=== PATIENT | female | born 1990 | race Caucasian/White ===

== ENCOUNTER 2023-08-28 10:04 | Inpatient (IN) | payer OTHER ==
[2023-08-28] VITALS (34 sets, daily range): BP systolic 109–149; BP diastolic 59–91; PULSE 83–115; TEMP 97.8–98.9
[~2023-08-28] VITALS: Ht 160 cm; Wt 100.9 kg
[~2023-08-28 10:04] MED LIST: ORSYTHIA 0.02 M1 TAB PO; PRENATAL TABLET PO; ZOFRAN ODT4 MG PO
--- NOTE | 2023-08-28 14:25 | NUR ---
PT ARRIVES AMBULATORY FOR IOL. SUPPORTIVE AND AT BEDSIDE. PT ORIENTED TO ROOM AND PLAN OF CARE. PT DENIES LOF/VB, REPORTS "MILD" CONTRACTIONS EARLIER TODAY, AND REPORTS A "VERY ACTIVE" BABY. URE AWARE OF PT'S ARRIVAL. CATEGORY 1 EFM TRACING UPON ADMISSION, SVE 1-270/-2, INTACT.
[2023-08-28] MEDS ORDERED: LR 1,000 ML IV SCH (14:30)
[2023-08-28] MEDS ORDERED: LR & Oxytocin 500 ML IV SCH (14:30)
[2023-08-28 14:52] LABS: BASO % 0.3 % (0.0-2.0); EOS # 0.1 K/mm3 (0.0-0.7); EOS % 0.9 % (0.0-4.0); GRAN # 8.3 K/mm3 (1.4-6.5); GRAN % 71.5 % (42.2-75.2); LYMPH # 2.1 K/mm3 (1.2-3.4); LYMPH % 17.9 % (20.0-51.0); MEAN CELL VOLUME 90 fl (80.0-100.0); MEAN CORPUSCULAR HEMOGLOBIN 31 pg (27-31); MEAN CORPUSCULAR HGB CONC 34 g/dl (33.0-37.0); MONO % 8.2 % (1.7-9.3); PLATELET COUNT 267 K/mm3 (130-400); REDCELL DISTRIBUTION WIDTH-CV 13.2 % (11.5-14.5)
[2023-08-28 14:56] LABS: HEMATOCRIT 32.5 % (37.0-47.0)
--- NOTE | 2023-08-28 17:09 | NUR ---
DR RAMIREZ AT BEDSIDE. BEDSIDE ULTRASOUND PERFORMED, VERTEX PRESENTATION CONFIRMED. SVE /-2, AROM WITH LARGE AMOUNT OF CLEAR FLUID PER AT 1709. PT TOLERATED PROCEDURE WELL. FSE PLACED FOR MONITORING AT THIS TIME.
--- NOTE | 2023-08-28 18:28 | NUR ---
Pt sitting at edge of bed for epidural placement. 183 H.Afshin NOZZLE AND SLEEVE WORKER into room for epidural placement. See Anesthesia record. 1836 Single shot. 183 Test dose. 185 To Wedge left. 185 To WR after pt reprts pain is in R hip.
[2023-08-28] MEDS ORDERED: ROPivacaine PF 0.2% 200 ML IV ONE (18:30)
[2023-08-28] MEDS ORDERED: ePHEDrine 50 MG/10 ML VIAL IV PRN (18:45)
[2023-08-28] MEDS ORDERED: diphenhydrAMINE 50 MG/ML 1 ML VIAL IV PRN (18:45)
[2023-08-28] MEDS ORDERED: diphenhydrAMINE 25 MG CAP PO PRN (18:45)
[2023-08-28] MEDS ORDERED: Naloxone 0.4 MG/ML VIAL IV PRN (18:45)
[2023-08-28] MEDS ORDERED: Ondansetron 4 MG/2 ML VIAL IV PRN (18:45)
--- NOTE | 2023-08-28 19:10 | NUR ---
To WL , encouraged to push epidural MENTAL HEALTH PROGRAM DIRECTOR. PT breathing through ctx, tense.
--- NOTE | 2023-08-28 19:40 | NUR ---
Working on getting pt more comfortable, position changes, pt using epidural QUALITY ENGINEERING MANAGER button. FHT's to 80's with position chamge to supine for SVE. gradual return to baseline over q 1 min.
--- NOTE | 2023-08-28 19:50 | NUR ---
Hot pack applied to L hip for pt comfort
--- NOTE | 2023-08-28 20:15 | NUR ---
KERI RL. Pt states "I'm starting to ge more comfortable"
--- NOTE | 2023-08-28 21:00 | NUR ---
Dr Monte continues on unit at L&D desk.
--- NOTE | 2023-08-28 21:47 | NUR ---
To PB RL. FHT'S TO 90's with position change. Back to baseline when PB removed. onset to return to baseline [address] Monte into room, FHT'swith late decel to 90's with next ctx. To Supine for SVE by Dr Monte, as noted.AR
--- NOTE | 2023-08-28 22:15 | NUR ---
FHT's with late decelerations to 120's after peak of ctx,spont return to baseline. onset to return to baseline 60-70 sec. 2220 to LL with larger pb in place. FHT's to 80's-90's with position change, moderate to marked variability in trough. returns above baseline, 150's. Thne late decelration to 130's with next ctx. 2225 Pitocin gtt off. [address] Monte. To R lateral with stirrup. Dr Monte continue in room. 0 FHT's to 90's after ctx and position change. Gradual spont return to baselin 130's over 1.5 minutes. FHT's with late deceleratin with next ctx. O2 @10l/mask by Dr Monte 2237 To Kneechest with max assist of 3
--- NOTE | 2023-08-28 22:45 | NUR ---
Dr Monte continues in room with this RN. O2 off per Dr Monte. Pt to WR.
--- NOTE | 2023-08-28 23:10 | NUR ---
Pitocin gtt restarted @ 2mu/min. 2315 Pitocin gtt to 10mu/min per Dr Monte's order.
--- NOTE | 2023-08-28 23:30 | NUR ---
FHT's with recurrent late decelerations. This RN and Dr Monte into room. WL, FHT's to [address] SVE by DR Monte, unchanged. Piotocin gtt off . To WR. FHt's with gradual return to baseline. onset to return to baseline 4min. Dr Monte discusses POC for C/S. Questions invited and answerred. Anesthesia into room to dose epidural. 4078 To C/S room via bed.
[2023-08-28] MEDS ORDERED: Chloroprocaine PF 3% (30 MG/ML) 20 ML VIAL ONE (23:35)
[2023-08-28] MEDS ORDERED: NS 10 ML IV ONE (23:44)
[2023-08-29] VITALS (16 sets, daily range): BP systolic 104–130; BP diastolic 42–75; PULSE 70–90; TEMP 98–98.7
[2023-08-29] MEDS ORDERED: Ketorolac 30 MG/ML VIAL ONE (00:02)
[2023-08-29] MEDS ORDERED: Ondansetron 4 MG/2 ML VIAL ONE (00:10)
[2023-08-29] MEDS ORDERED: dexAMETHasone 10 MG/ML VIAL ONE (00:14)
[2023-08-29] MEDS ORDERED: NS 10 ML IV ONE (00:14)
[2023-08-29] MEDS ORDERED: LR 1,000 ML IV PRN (00:45)
[2023-08-29] MEDS ORDERED: Magnes Hydrox (MOM) 80 MG/ML 30 ML CUP PO PRN (00:45)
[2023-08-29] MEDS ORDERED: Ondansetron 4 MG/2 ML VIAL IV PRN (00:45)
[2023-08-29] MEDS ORDERED: oxyCODONE/Acetaminophen 5-325 MG TAB PO PRN (00:45)
[2023-08-29] MEDS ORDERED: Measles/Mumps/Rubella Virus Vaccine Live w Diluent 0.5 ML VIAL SQ SCH (00:45)
[2023-08-29] MEDS ORDERED: Naloxone 0.4 MG/ML VIAL IV PRN (00:45)
[2023-08-29] MEDS ORDERED: Loratadine 10 MG TAB PO PRN (00:45)
--- NOTE | 2023-08-29 02:00 | NUR ---
clot expressed with fundal massage.
[2023-08-29] MEDS ORDERED: Ibuprofen 800 MG TAB PO SCH (06:38)
[2023-08-29] MEDS ORDERED: Sennosides/Docusate 8.6-50 MG TAB PO SCH (08:00)
[2023-08-29] MEDS ORDERED: PERCOCET 325 MG1 TA2 PO (08:05)
[2023-08-29] MEDS ORDERED: IBU800 M1 PO (08:05)
[2023-08-29] MEDS ORDERED: traZODone 50 MG TAB PO PRN (21:00)
[2023-08-30 08:00] VITALS: BP 116/66; PULSE 95; TEMP 97.9
[2023-08-30 17:18] VITALS: BP 125/72; PULSE 84; TEMP 97.8
[2023-08-30 20:15] VITALS: BP 117/70; PULSE 72; TEMP 97.9
[2023-08-31 07:00] VITALS: BP 125/75; PULSE 87; TEMP 98.1
--- NOTE | 2023-08-31 13:34 | NUR ---
DISCHARGE INSTRUCTIONS WERE REVIEWED WITH PATIENT. PATIENT VERBLIZED HER UNDERSTANDING OF INFORMATION.
== END 2023-08-31 13:25 | disposition home or self-care (01) | DRG 787 ==
LOC: OB 10:04 → LDR 14:16 → OB 08-29 02:56
PROVIDERS: ADMIT Student in an Organized Health Care Education/Training Program
PROC: 3E033VJ Introduction of Other Hormone into Peripheral Vein, Percutaneous Approach (ICD-10-PCS; 2023-08-28)
PROC: 10D00Z1 Extraction of Products of Conception, Low, Open Approach (ICD-10-PCS; principal; 2023-08-29)
PROC: 10907ZC Drainage of Amniotic Fluid, Therapeutic from Products of Conception, Via Natural or Artificial Opening (ICD-10-PCS; 2023-08-29)
DX: O40.3XX0 Polyhydramnios, third trimester, not applicable or unspecified (principal); O98.52 Other viral diseases complicating childbirth; Z37.0 Single live birth; O76 Abnormality in fetal heart rate and rhythm complicating labor and delivery; O69.81X0 Labor and delivery complicated by cord around neck, without compression, not applicable or unspecified; B02.9 Zoster without complications; Z3A.39 39 weeks gestation of pregnancy; Z88.0 Allergy status to penicillin
CPT/HCPCS: J0665; J1100; J1885; J2401; J2405; J2590; J2795; J7120